=== PATIENT | female | born 1970 | race Caucasian/White ===

== ENCOUNTER 2020-06-13 22:45 | Emergency (ER) | payer SELFPAY ==
[~2020-06-13] VITALS: Ht 154.9 cm; Wt 79.8 kg
[2020-06-13 22:45] VITALS: BP 120/95
--- NOTE | 2020-06-13 22:45 | NUR ---
Patient states "I have chest pain approximately 30 minutes prior to arrival. "I think it is associated with my anxiety". Also states that it is gone at this point and wants to leave and f/u with PMD.
== END 2020-06-13 23:14 | disposition home or self-care (01) ==
LOC: ER 22:51
DX: R07.89 Other chest pain (principal); Z59.0 Homelessness